=== PATIENT | male | born 1950 | race Caucasian/White ===

== ENCOUNTER 2022-09-16 09:31 | Inpatient (IN) | payer OTHER ==
[~2022-09-16] VITALS: Ht 175.3 cm; Wt 99.8 kg
[~2022-09-16 09:31] MED LIST: LIPITOR20 MG PO; SYNTHROID150 MCG PO
[2022-09-16] MEDS ORDERED: COZAAR25 MG PO (12:49)
[2022-09-16] MEDS ORDERED: METFORMIN HCL500 M3 PO (12:49)
[2022-09-21] MEDS ORDERED: TACROLIMUS0.5 MG (07:53)
[2022-09-21] MEDS ORDERED: MYCOPHENOLATE500 MG (07:53)
[2022-09-21] MEDS ORDERED: AMLODIPINE BESYL5 MG (07:53)
[2022-09-21] MEDS ORDERED: METOPROLOL SUCC25 MG ×2 (07:53→07:55)
[2022-09-21] MEDS ORDERED: MIRTAZAPINE15 MG (07:53)
[2022-09-21] MEDS ORDERED: LOPRESSOR25 MG (07:54)
[2022-09-21] MEDS ORDERED: ENALAPRIL MALEA10 MG (07:54)
[2022-09-21] MEDS ORDERED: DILTIAZEM HCL120 M1 (07:54)
[2022-09-21] MEDS ORDERED: ELIQUIS2.5 MG (07:54)
[2022-09-22] MEDS ORDERED: DUI500 PO (07:53)
[2022-09-22] MEDS ORDERED: PERCOCET 5-3251 EACH PO (07:53)
[2022-09-22] MEDS ORDERED: ELIQUIS2.5 MG PO (07:53)
== END 2022-09-23 17:30 | DRG 470 ==
LOC: O/R 09-21 05:43 → SURG 09-21 09:45
PROVIDERS: ADMIT Orthopaedic Surgery; ATTEND Orthopaedic Surgery
PROC: 0SRC0J9 Replacement of Right Knee Joint with Synthetic Substitute, Cemented, Open Approach (ICD-10-PCS; principal; 2022-09-21 16:30)
DX: M17.11 Unilateral primary osteoarthritis, right knee (principal); M22.11 Recurrent subluxation of patella, right knee; E03.9 Hypothyroidism, unspecified; Z20.822 Contact with and (suspected) exposure to COVID-19

== ENCOUNTER → 2023-12-27 | Day surgery (SDC) | payer OTHER ==
[2023-12-22 09:00] LABS: HEMATOCRIT 44.1 % (39.0-48.0); HEMOGLOBIN 14.9 g/dL (13-16.00); MEAN CELL VOLUME 88.2 fL (80.0-100.00); MEAN CORPUSCULAR HEMOGLOBIN 29.8 pg (27.00-32.0); MEAN CORPUSCULAR HGB CONC 33.8 g/dl (32.0-36.0); PLATELET COUNT 243 K/uL (150-450)
[2023-12-22 09:14] VITALS: BP 128/78
[2023-12-22 09:35] LABS: URINE APPEARANCE Clear; URINE BILIRRUBIN Negative (NEGATIVE); URINE BLOOD Negative; URINE COLOR Yellow; URINE GLUCOSE Negative (NEGATIVE); URINE KETONE Negative (NEGATIVE); URINE LEUKOCYTE Negative; URINE NITRATE Negative; URINE PROTEIN Negative (NEGATIVE); URINE UROBILINOGEN 0.2 E.U./dl
[2023-12-22 09:36] LABS: PARTIAL THROMBOPLASTIN TIME 28.2 SECONDS (22.0-34.0); PROTHROMBIN TIME 10.9 SECONDS (9.0-11.5)
[2023-12-22 09:38] LABS: URINE BACTERIA 6.2 uL (0.0-1933)
[2023-12-22 09:44] LABS: ALBUMIN 4.1 gm/dL (3.4-5.0); BILIRUBIN TOTAL 1.04 mg/dL (0.3-1.2); CREATININE SERUM 1.12 mg/dL (0.70-1.30); GFR 64.63; GLOBULINA 3.2 G/DL (2.4-3.5); POTASSIUM 4.57 mEq/L (3.5-5.1); TOTAL PROTEIN 7.3 gm/dL (6.4-8.2)
[2023-12-22 09:49] LABS: URINE EPITHELIAL CELLS 0.4 uL (0.0-38.8); URINE RBC 0.4 uL (0.0-20.8); URINE WBC 0.4 uL (0.0-23.2)
[~2023-12-27] VITALS: Ht 175.3 cm; Wt 102.1 kg
[~2023-12-27] MED LIST changes: +AMLODIPINE BESYL5 MG; +BUPIVACAINE HCL 30 ML VIAL IJ ONE; +CEFAZOLIN SODIUM 1,000 MG VIAL IV ONE; +COZAAR25 MG PO; +DILTIAZEM HCL120 M1; +DUI500 PO; +ELIQUIS2.5 MG; +ELIQUIS2.5 MG PO; +ENALAPRIL MALEA10 MG; +LOPRESSOR25 MG; +METFORMIN HCL500 M3 PO; +METOPROLOL SUCC25 MG; +MIRTAZAPINE15 MG; +MYCOPHENOLATE500 MG; +PERCOCET 5-3251 EACH PO; +TACROLIMUS0.5 MG
== END | disposition home or self-care (01) ==
LOC: ADM 12-22 07:45 → CIR.AMB 05:38
PROVIDERS: ATTEND Orthopaedic Surgery Hand Surgery
DX: M18.11 Unilateral primary osteoarthritis of first carpometacarpal joint, right hand (principal)